=== PATIENT | female | born 1925 | race Caucasian/White ===

== ENCOUNTER 2017-02-06 15:09 | Observation (INO) | payer OTHER, BC ==
[~2017-02-06] VITALS: Ht 160 cm; Wt 71.6 kg
[2017-02-06 16:29] LABS: ADD MIUA? YES; BILIRUBIN NEGATIVE; BLOOD SMALL; COLOR YELLOW ((YELLOW)); GLUCOSE (STRIP) NEGATIVE; KETONES NEGATIVE; LEUKOCYTES NEGATIVE; NITRITE NEGATIVE; PROTEIN (STRIP) NEGATIVE; SPECIFIC GRAVITY 1.009 (1.000-1.030); UROBILINOGEN 0.2 MG/DL (0.2-1.0)
[2017-02-06 16:31] LABS: BACTERIA RARE /HPF; EPITHELIAL CELLS RARE /HPF; MUCUS TRACE /LPF; RED BLOOD CELLS 0-5 /HPF (0-5); UCUL ADDED? NO; WHITE BLOOD CELLS 0-5 /HPF (0-5)
[2017-02-06 17:21] LABS: HEMATOCRIT 37.3 % (36.0-46.0); MCH 30.7 PG (29.0-34.0); MCHC 34.3 G/DL (30.0-36.0); MCV 89.4 FL (83-99); MEAN PLAT.VOLUME 9.2 uM^3 (9.5-12.4); PLATELET COUNT 195 K/uL (156-360); RBC DIS.WIDTH-SD 42.4 % (39-53); RED BLOOD COUNT 4.17 M/uL (3.80-5.20); WHITE BLOOD COUNT 5.1 K/uL (4.1-10.2)
[2017-02-06 17:29] LABS: PROTHROMBIN TIME 11.7 SEC (10.2-12.9)
[2017-02-06 17:30] LABS: CHLORIDE 110 mEq/L (99-109); POTASSIUM 3.8 mEq/L (3.7-5.4); SODIUM 143 mEq/L (136-147)
[2017-02-06 17:31] LABS: PTT 31.7 SEC (25-37)
[2017-02-06 17:32] LABS: GLUCOSE 102 mg/dL (70-99)
[2017-02-06 17:33] LABS: ANION GAP 9 MEQ/L (2-14)
[2017-02-06 17:35] LABS: GFR ESTIMATE (CALCULATED) > 59 mL/min/
[2017-02-06 17:36] LABS: UREA NITROGEN (BUN) 19 mg/dL (9-23)
[2017-02-06 17:42] LABS: TROP-I INTERPRETATION NEGATIVE; TROPONIN-I < 0.01 ng/mL (0.0-0.30)
[2017-02-06] MEDS ORDERED: EYE DROP15 ML BOTH EYES (18:13)
[2017-02-06] MEDS ORDERED: ASPERCREME 1035.4 GM TP (18:14)
[2017-02-06 19:38] LABS: Estimated Average Glucose 111 mg/dL (70-123); HEMOGLOBIN A1c (GLYCOHEMOGLOB) 5.5 % HGB (Below 5.7)
[2017-02-06 19:48] LABS: HDL CHOLESTEROL 59 MG/DL (Desirable>=50); LDL CHOLESTEROL 102 mg/dL (Desirable<100); NON-HDL CHOLESTEROL 117 mg/dL (Desirable<160); TOTAL CHOLESTEROL 176 mg/dL (Desirable<200); TRIGLYCERIDES 73 MG/DL (Normal: <150)
[2017-02-06 21:24] VITALS: BP 176/77
[2017-02-06 23:54] VITALS: BP 105/51
[2017-02-07 03:57] VITALS: BP 134/64
[2017-02-07 10:37] VITALS: BP 114/56
[2017-02-07] MEDS ORDERED: ATORVASTATIN CA40 MG PO (11:38)
[2017-02-07] MEDS ORDERED: LISINOPRIL10 MG PO (11:38)
== END 2017-02-07 15:12 | disposition home or self-care (01) ==
LOC: EME 15:09 → EDOF 18:21 → 5WEST 18:21 → ENRESERV 18:23 → 5WEST 21:07
PROVIDERS: Hospitalist; Physician Assistant Medical
DX: G45.9 Transient cerebral ischemic attack, unspecified (principal); I16.0 Hypertensive urgency; I08.0 Rheumatic disorders of both mitral and aortic valves; Z66 Do not resuscitate; Z79.82 Long term (current) use of aspirin; Z88.0 Allergy status to penicillin
CPT/HCPCS: 70450; 70551; 71010; 80048; 80061; 81003; 83036; 84484; 85027; 85610; 85730; 93005; 93306; 93880; 99281; 99285; G0378; J0360